=== PATIENT | male | born 1960 | race Caucasian/White ===

== ENCOUNTER 2019-04-09 02:03 | Emergency (ER) | payer BC ==
[~2019-04-09] VITALS: Ht 162 cm; Wt 70.0 kg
[~2019-04-09 02:03] MED LIST: BACL10TA PO; PRED10TA PO; SERT50TA PO
[2019-04-09] MEDS ORDERED: KETOROLAC 30 MG/ML VIAL IVP STA (02:35)
[2019-04-09] MEDS ORDERED: ORPHENADRINE 60 MG/2 ML (NORFLEX) AMP IV ONE (02:45)
--- NOTE | 2019-04-09 02:46 | ED Lower Extremity ---
General Chief Complaint: Lower Extremity Stated Complaint: RT LEG PAIN Nursing Triage Note: PT STATES HE IS VERY ACTIVE, RUNS FREQUENTLY, RAN 6 MILES SUNDAY THEN WOKE UP IN THE MIDDLE OF THE NIGHT WITH R HIP/LOWER BACK PAIN THAT HAS INCREASED IN SEVERITY SINCE THEN, PT STATES PAIN COMES AT NIGHT WHILE HE SLEEPS. PT VERBALIZED DISTANT HX OF BACK PAIN D/T NARROWING IN THE VERTEBRE Nursing Sepsis Screen: No Definite Risk Source: patient History of Present Illness Date Seen by Provider: Apr 09, 2019 Time Seen by Provider: 02:25 Initial Comments PT ARRIVES VIA POV FROM HOME C/O PAIN IN RIGHT LEG FOR SEVERAL DAYS--STARTED SUNDAY NIGHT ( HAD RAN 6 MILES DURING THE DAY ON SUNDAY) PAIN STARTS IN RIGHT LOWER BACK/BUTTOCKS AND RIGHT HIP JOINT AREA AND RADIATES DOWN RIGHT LEG STATES PAIN IS SEVERE AT NIGHT, AND HAS NOT BEEN ABLE TO SLEEP STATES HE HAS TAKEN IBUPROFEN IN THE MORNING AND THEN AFTER A COUPLE OF HOURS, HE IS "ABLE TO WORK IT OUT" AND THEN PAIN GOES AWAY. STATES HE HAS NOT HAD SIGNIFICANT PAIN DURING THE DAY, AFTER HE GETS MOVING. PAIN HAS RETURNED EVERY NIGHT WHEN HE TRIES TO GO TO SLEEP HAS NOT TAKEN ANYTHING TODAY OR TONIGHT FOR PAIN STATES HIS HAMSTRING CRAMPS AT TIMES NO PARESTHESIAS OR MOTOR DEFICITS NO PROBLEMS WITH BOWEL OR BLADDER FUNCTION NO RASH NO SWELLING OR DISCOLORATION TO LEG NO KNOWN INJURY OR UNUSUAL ACTIVITY PT IS EXTREMELY ACTIVE--WORKS OUT, RUNS, ETC. 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 STATES HE WENT TO [employer] TO WORK OUT ON SUNDAY, AND TALKED WITH THE DISTRIBUTION ANALYST. YESTERDAY, HE PUT HIM IN SOME TRACTION ON THE RIGHT LEG--WAS NOT HURTING AT THAT TIME. THEN LAST EVENING THE PAIN RETURNED. STATES HE HAS HAD BACK PAIN "YEARS AGO" AND WAS TOLD HE HAS DEGENERATIVE DISCS, BUT HAS NOT HAD ANY SIGNIFICANT BACK PROBLEMS. NO JOINT PROBLEMS PCP: DR. YANG Allergies and Home Medications Allergies Coded Allergies: No Known Drug Allergies (Unverified , 03/30/11) Home Medications Baclofen 10 Mg Tablet, 1 EACH PO TID PRN Prescribed by: STEF PINEDA on 03/30/11 0900 Prednisone 10 Mg Tablet, 10 MG PO DAILY 3 tabs by mouth on day 1 2.5 tabs by mouth on day 2 2 tabs by mouth on day 3 1.5 tabs by mouth on day 4 1 tab by mouth on day 5 Prescribed by: CHRIS MARTELL on 12/21/131904 Prednisone 10 Mg Tablet, 30 MG PO DAILY Prescribed by: CHRIS MARTELL on 12/21/131935 Prednisone 5 Mg Tablet, 5 MG PO UD 12 PILLS DAY 1, THEN DECREASE BY 1 PILL A DAY UNTIL GONE Prescribed by: MERLIN DOW on 04/09/19405 Sertraline Hcl 50 Mg Tablet, 1 TAB PO DAILY, (Reported) Tizanidine HCl 4 Mg Capsule, 4 MG PO TID Prescribed by: MERLIN DOW on 04/09/19405 Tramadol HCl 50 Mg Tablet, 50 MG PO Q4H PRN for PAIN-MODERATE Prescribed by: MERLIN DOW on 04/09/19405 Patient Home Medication List Home Medication List Reviewed: Yes Review of Systems Constitutional: no symptoms reported Respiratory: no symptoms reported Cardiovascular: no symptoms reported Gastrointestinal: no symptoms reported Genitourinary: no symptoms reported Musculoskeletal: see HPI Skin: no symptoms reported Psychiatric/Neurological: No Symptoms Reported Past Tsuufko-Dfxtgd-Jwdwna Hx Patient Social History Alcohol Use: Occasionally Uses Alcohol Beverage of Choice: Beer Recreational Drug Use: No Smoking Status: Never a Smoker Recent Foreign Travel: No Contact w/Someone Who Travel: No Recent Infectious Disease Expo: No Recent Hopitalizations: No Immunizations Up To Date Tetanus Booster (TDap): Less than 5yrs PED Vaccines UTD: Yes Seasonal Allergies Seasonal Allergies: No Past Medical History Surgeries: No Respiratory: No Cardiac: No Neurological: No Genitourinary: No Gastrointestinal: No Musculoskeletal: No Endocrine: No HEENT: No Cancer: No Psychosocial: Yes Sleep Difficulties Integumentary: No Blood Disorders: No Physical Exam Vital Signs Vital Signs - First Documented 04/09/19 02:14 Temp 36.7 Pulse 71 Resp 18 B/P (MAP) 150/84 (106) Pulse Ox 97 O2 Delivery Room Air Capillary Refill : Less Than 3 Seconds Height, Weight, BMI Height: 5'4" Weight: 155lbs. oz. [id number]; 26.00 BMI Method: General Appearance: WD/WN, no apparent distress, other (WALKS WITHOUT DI FFICULTY. WHEN LAYING DOWN, IS CONSTANTLY MOVING RIGHT LEG AROUND IN ALL DIRECTIONS,. FREQUENTLY LAYING FLAT WITH BOTH KNEES AND HIPS FLEXED AND RIGHT ANKLE OVER LEFT KNEE WITH EXTERNAL ROTATION OF HIP, AND PRESSING ON RIGHT HIP AND BUTTOCK AREA. ) Cardiovascular: normal peripheral pulses, regular rate, rhythm, no edema, no JVD, no murmur Respiratory: normal breath sounds, no respiratory distress, no accessory muscle use Gastrointestinal: non tender, soft Back: normal inspection, no CVA tenderness, no vertebral tenderness, other (SLIGHT TENDERNESS TO RIGHT SI JOINT AREA AND RIGHT MID BUTTOCK AREA. ) Hips: bilateral hip non-tender, bilateral hip normal inspection, bilateral hip normal range of motion, bilateral hip no evidence of injury Legs: bilateral leg non-tender, bilateral leg normal inspection, bilateral leg normal range of motion, bilateral leg no evidence of injury Knees: bilateral knee non-tender, bilateral knee normal inspection, bilateral knee normal range of motion, bilateral knee no evidence of injury Ankles: bilateral ankle non-tender, bilateral ankle normal inspection, bila teral ankle normal range of motion, bilateral ankle no evidence of injury Feet: bilateral foot non-tender, bilateral foot normal inspection, bilateral foot normal range of motion, bilateral foot no evidence of injury Neurologic/Tendon: normal sensation, normal motor functions, normal tendon functions Neurologic/Psychiatric: orthotic fitter II-XII nml as tested, no motor/sensory deficits, alert, oriented x 3, other (SOMEWHAT ANXIOUS) Skin: normal color, warm/dry; No rash Progress/Results/Core Measures Results/Orders Lab Results Laboratory Tests Test 04/09/19 02:38 Range/Units White Blood Count 7.2 4.3-11.0 10^3/uL Red Blood Count 4.57 4.35-5.85 10^6/uL Hemoglobin 14.3 13.3-17.7 G/DL Hematocrit 41 40-54 % Mean Corpuscular Volume 89 80-99 FL Mean Corpuscular Hemoglobin 31 25-34 PG Mean Corpuscular Hemoglobin Concent 35 32-36 G/DL Red Cell Distribution Width 12.7 10.0-14.5 % Platelet Count 231 130-400 10^3/uL Mean Platelet Volume 9.1 7.4-10.4 FL Neutrophils (%) (Auto) 56 42-75 % Lymphocytes (%) (Auto) 33 12-44 % Monocytes (%) (Auto) 9 0-12 % Eosinophils (%) (Auto) 2 0-10 % Basophils (%) (Auto) 0 0-10 % Neutrophils # (Auto) 4.0 1.8-7.8 X 10^3 Lymphocytes # (Auto) 2.3 1.0-4.0 X 10^3 Monocytes # (Auto) 0.6 0.0-1.0 X 10^3 Eosinophils # (Auto) 0.2 0.0-0.3 10^3/uL Basophils # (Auto) 0.0 0.0-0.1 10^3/uL Sodium Level 140 135-145 MMOL/L Potassium Level 4.3 3.6-5.0 MMOL/L Chloride Level 107 98-107 MMOL/L Carbon Dioxide Level 23 21-32 MMOL/L Anion Gap 10 5-14 MMOL/L Blood Urea Nitrogen 14 7-18 MG/DL Creatinine 0.97 0.60-1.30 MG/DL Estimat Glomerular Filtration Rate > 60 BUN/Creatinine Ratio 14 Glucose Level 95 70-105 MG/DL Calcium Level 9.0 8.5-10.1 MG/DL Corrected Calcium 8.8 8.5-10.1 MG/DL Magnesium Level 2.3 1.6-2.4 MG/DL Total Bilirubin 0.6 0.1-1.0 MG/DL Aspartate Amino Transf (AST/SGOT) 23 5-34 U/L Alanine Aminotransferase (ALT/SGPT) 27 0-55 U/L Alkaline Phosphatase 42 40-136 U/L Total Protein 7.3 6.4-8.2 GM/DL Albumin 4.3 3.2-4.5 GM/DL My Orders Orders - MERLIN DOW DO Ed Iv/Invasive Line Start (04/09/19 02:35) Pelvis With Right Hip 2-3views (04/09/19 02:35) Cbc With Automated Diff (04/09/19 02:35) Comprehensive Metabolic Panel (04/09/19 02:35) Magnesium (04/09/19 02:35) Ketorolac Injection (Toradol Injection) (04/09/19 02:35) Orphenadrine Injection (Norflex Injectio (04/09/19 02:45) Ct Lumbar Spine Wo (04/09/19 02:35) Ct Extremity Lower Right Wo (04/09/19 02:35) Morphine Injection (Morphine Injection (04/09/19 03:58) Rx-Cyclobenzaprine Tablet (Rx-Flexeril T (04/09/19 04:13) Rx-Tramadol Hcl (Rx-Ultram) (04/09/19 04:13) Medications Given in ED Current Medications Medications Dose Ordered Sig/Lissette Route Start Time Stop Time Status Last Admin Dose Admin Orphenadrine Citrate 60 mg ONCE ONCE IV 04/09/19 02:45 04/09/19 02:46 DC 04/09/19 02:49 60 MG Vital Signs/I&O 04/09/19 02:14 Temp 36.7 Pulse 71 Resp 18 B/P (MAP) 150/84 (106) Pulse Ox 97 O2 Delivery Room Air Blood Pressure Mean: 106 Progress Progress Note : Progress Note GIVEN TORADOL AND NORFLEX WITHOUT SIGNIFICANT RELIEF, PT STILL WRITHING IN PAIN. 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 CT RIGHT LOWER EXTREMITY--NO ACUTE PROCESS, NO FRACTURE, DISLOCATION OR AVASCULAR NECROSIS PER [facility] VIA FAX AT [phone] Reviewed: Reviewed by Me Departure Impression Primary Impression: Right sided sciatica Additional Impression: POSSIBLE PIRIFORMIS SYNDROME Disposition: 01 HOME, SELF-CARE Condition: Stable Departure-Patient Inst. Referrals: LORI YANG DO (PCP/Family) Primary Care Physician Patient Instructions: Sciatica (DC) Add. Discharge Instructions: ALTERNATE ICE AND HEAT TO AREA AT 20 MINUTE INTERVALS AVOID RUNNING OR ANY STRENUOUS EXERCISE UNTIL CLEARED BY YOUR DR FOLLOW UP WITH DR. YANG THIS WEEK FOR FURTHER CARE All discharge instructions reviewed with patient and/or family. Voiced understanding. Scripts Tramadol HCl (Ultram) 50 Mg Tablet 50 MG PO Q4H PRN for PAIN-MODERATE for 3 Days, TAB Prov: MERLIN DOW DO 04/09/19 Tizanidine HCl (Tizanidine HCl) 4 Mg Capsule 4 MG PO TID for Muscle Spasms, #15 CAP Prov: MERLIN DOW DO 04/09/19 Prednisone (Prednisone) 5 Mg Tablet 5 MG PO UD, #78 TAB 12 PILLS DAY 1, THEN DECREASE BY 1 PILL A DAY UNTIL GONE Prov: MERLIN DOW DO 04/09/19 MERLIN DOW DO Apr 09, 2019 02:45
[2019-04-09 02:53] LABS: BASOPHILS % (AUTO) 0 % (0-10); EOSINOPHILS # (AUTO) 0.2 10^3/uL (0.0-0.3); EOSINOPHILS % (AUTO) 2 % (0-10); HEMATOCRIT 41 % (40-54); HEMOGLOBIN 14.3 G/DL (13.3-17.7); LYMPHOCYTES # (AUTO) 2.3 X 10^3 (1.0-4.0); LYMPHOCYTES % (AUTO) 33 % (12-44); MEAN CORPUSCULAR HEMOGLOBIN 31 PG (25-34); MEAN CORPUSCULAR HGB CONC 35 G/DL (32-36); MEAN CORPUSCULAR VOLUME 89 FL (80-99); MEAN PLATELET VOLUME 9.1 FL (7.4-10.4); MONOCYTES # (AUTO) 0.6 X 10^3 (0.0-1.0); MONOCYTES % (AUTO) 9 % (0-12); NEUTROPHILS % (AUTO) 56 % (42-75); PLATELET COUNT 231 10^3/uL (130-400); RED CELL DISTRIBUTION WIDTH 12.7 % (10.0-14.5); WHITE BLOOD COUNT 7.2 10^3/uL (4.3-11.0)
[2019-04-09 03:08] LABS: ALANINE AMINOTRANSFERASE 27 U/L (0-55); ALBUMIN 4.3 GM/DL (3.2-4.5); ALKALINE PHOSPHATASE 42 U/L (40-136); BILIRUBIN,TOTAL 0.6 MG/DL (0.1-1.0); BUN/CREATININE RATIO 14; CARBON DIOXIDE 23 MMOL/L (21-32); CHLORIDE 107 MMOL/L (98-107); CREATININE SERUM 0.97 MG/DL (0.60-1.30); GFR ESTIMATED > 60; GLUCOSE 95 MG/DL (70-105); MAGNESIUM 2.3 MG/DL (1.6-2.4); POTASSIUM 4.3 MMOL/L (3.6-5.0); SODIUM 140 MMOL/L (135-145); TOTAL PROTEIN 7.3 GM/DL (6.4-8.2)
[2019-04-09] MEDS ORDERED: morphine INJ 10 MG/ML 1ML (SYR OR VIAL) IVP STA (03:58)
[2019-04-09] MEDS ORDERED: TRAM-42 PO (04:06)
[2019-04-09] MEDS ORDERED: TIZA4CAP8 PO (04:06)
[2019-04-09] MEDS ORDERED: PRED5TAB PO (04:06)
[2019-04-09] MEDS ORDERED: RX-CYCLOBENZAPRINE 10 MG (FLEXERIL) TAB PPK#3 PO STA (04:13)
[2019-04-09] MEDS ORDERED: RX-TRAMADOL 50 MG (ULTRAM) TAB PPK#4 PO STA (04:13)
[2019-04-09 04:24] VITALS: BP 137/83
--- NOTE | 2019-04-09 08:24 | Diagnostic Imaging Report ---
INDICATION: Pain. COMPARISON: None available. TECHNIQUE: 3 radiographs of the pelvis and right hip dated 04/09/2019. FINDINGS: No acute fracture or dislocation. No destructive osseous process. The bilateral sacroiliac joints are intact. Pubic symphysis is intact. The right femoral head maintains its normal shape and contour. Small calcifications are identified immediately inferior to the right inferior pubic ramus. IMPRESSION: No acute fracture or dislocation. Calcifications inferior to the right inferior pubic ramus may relate to enthesophyte formation, though could relate to chronic injury involving the origin of the hamstrings. Dictated by: Dictated on workstation # [id number]
--- NOTE | 2019-04-09 09:33 | Diagnostic Imaging Report ---
PROCEDURE: CT right lower extremity without contrast. TECHNIQUE: Axially acquired CT was obtained through the right lower extremity without intravenous contrast. Coronal and sagittal reformations were also performed. Auto Exposure Controls were utilized during the CT exam to meet ALARA standards for radiation dose reduction. INDICATION: Active runner, ran 6 miles on Sunday. Woke in middle of night with right hip pain and low back pain. Increasing in severity. EXAMINATION: CT right hip 04/09/2019 FINDINGS: No fractures or dislocations appreciated. Irregularity along the superior acetabulum consistent with degenerative change. Small osseous densities immediately adjacent to the ischial tuberosity likely enthesopathic change. Mild atherosclerotic disease seen within the medial vasculature of the thigh. Visualized intrapelvic structures are unremarkable. IMPRESSION: 1. No acute osseous abnormality. If pain persists MRI of the hip may be useful. Other findings as above. Dictated by: Dictated on workstation # [id number]
--- NOTE | 2019-04-09 09:37 | Diagnostic Imaging Report ---
PROCEDURE: CT lumbar spine without contrast. TECHNIQUE: Multiple contiguous axial images were obtained through the lumbar spine without the use of intravenous contrast. Sagittal and coronal reformations were then performed. Auto Exposure Controls were utilized during the CT exam to meet ALARA standards for radiation dose reduction. INDICATION: RUNNER. Ran 6 miles this past weekend. Woke up with pain in back and right hip. EXAMINATION: CT lumbar spine without contrast 04/09/2019 COMPARISON: 03/30/2011 FINDINGS: There is a grade 1 anterolisthesis L5 on S1 similar to previous imaging. Bilateral pars defects noted. Remaining alignment is maintained. No compression fracture seen, anterior spurring seen in the visualized lower thorax lumbar spine. There are no acute fractures. No soft tissue windows are provided limited by motion of the soft tissues however there are suspected mild disc bulges at L2-L3, L3-L4 and L4-L5. There is no significant central narrowing at any level appreciated but if concern for nerve root compression or soft tissue abnormality MRI recommended. Intra-abdominal soft tissues demonstrate no gross acute process, atherosclerotic disease is noted. IMPRESSION: 1. Persistent stable. Bilateral pars defects at L5 causing grade 1 anterolisthesis unchanged. 2. Multilevel degenerative findings with suspected multilevel disc bulges. No significant central stenosis however please see above discussion. Dictated by: Dictated on workstation # [id number]
== END 2019-04-09 04:24 | disposition home or self-care (01) ==
LOC: EDUNIT# 02:03 → ER 02:06
DX: M54.41 Lumbago with sciatica, right side (principal); Z79.52 Long term (current) use of systemic steroids
CPT/HCPCS: 36415; 72131; 73700; 80053; 83735; 85025; 96374; 96375

== ENCOUNTER → 2022-02-24 | Outpatient (CLI) | payer BC ==
[~2022-02-24] MED LIST changes: +CATHETER FLUSH 10 ML SYR IVP PRN; +PRED5TAB PO; +TIZA4CAP8 PO; +TRAM-42 PO
[2022-02-24 08:03] VITALS: BP 176/85
== END ==
LOC: CARD 07:00
PROVIDERS: ATTEND Internal Medicine
DX: I10 Essential (primary) hypertension (principal)
CPT/HCPCS: 78452; 93017; A9502